=== PATIENT | male | born 1980 | race Caucasian/White ===

== ENCOUNTER 2016-10-14 11:50 | Emergency (ER) | payer OTHER ==
[2016-10-14 12:01] VITALS: TEMP 98.2; BMI 27.8
--- NOTE | 2016-10-14 12:07 | PDOC ---
History of Present Illness - General History Source: Patient Exam Limitations: No Limitations - History of Present Illness Initial Comments: 10/14/16 12:34 The patient is a 36 year old male, with a significant past medical history of, who presents to the emergency department with intermittent right sided chest pain this morning. The patient describes his pain as sharp sensation radiating to his right shoulder and right neck area. He reports having an episode of chest pain this morning ranking his pain a 10/10 in pain intensity. He also reports while shoveling having another episode of chest pain the sidewalks today at work accompanied by heart palpitations, ranking his pain again during the episode a 10/10 in pain intensity. He reports having SOB during these chest pain episode and reports having pain with with deep inspirations. He denies any recent injury or trauma. He denies fever, chills, headache and dizziness. He denies nausea, vomit, diarrhea and constipation. Allergies: NKA Past surgical history: denies Family History: diabetes (paternal) Social History: Former ([place]) smoker. Denies EtOH use and drug use. <Vitor Dillard - Last Filed: 10/14/16 12:34> - General History Source: Patient Exam Limitations: No Limitations <Ania Lehman - Last Filed: 10/15/16 17:40> - General Chief Complaint: Chest Pain Stated Complaint: CHEST PAIN Time Seen by Provider: 10/14/16 12:03 Past History <Vitor Dillard - Last Filed: 10/14/16 12:34> - Past Medical History Other medical history: denies - Immunization History Immunization Up to Date: Yes - Psycho/Social/Smoking Cessation Hx Anxiety: No Suicidal Ideation: No Smoking History: Never smoked Have you smoked in the past 12 months: No Information on smoking cessation initiated: No Hx Alcohol Use: No Drug/Substance Use Hx: No Substance Use Type: None <Ania Lehman - Last Filed: 10/15/16 17:40> - Past Medical History Allergies/Adverse Reactions: Allergies Allergy/AdvReac Type Severity Reaction Status Date / Time No Known Allergies Allergy Verified 10/14/16 11:57 Home Medications: Ambulatory Orders NK [No Known Home Medication] 10/14/16 Review of Systems - Review of Systems Able to Perform ROS?: Yes Comments:: 10/14/16 12:35 GENERAL/CONSTITUTIONAL: No: fever, chills, weakness, loss of appetite. HEAD, EYES, EARS, NOSE AND THROAT: No: change in vision, ear pain, discharge, sore throat, throat swelling. CARDIOVASCULAR: Yes: chest pain and palpitations. No: lightheadedness, syncope RESPIRATORY: No: cough, shortness of breath, wheezing, hemoptysis, stridor. GASTROINTESTINAL: No: nausea, vomiting, diarrhea, abdominal cramping, rectal bleeding, constipation. GENITOURINARY: No: dysuria, hematuria, frequency, urgency, flank pain. MUSCULOSKELETAL: No: back pain, neck pain, joint pain, muscle swelling or pain SKIN : No: lesions, pallor, rash or easy bruising. NEUROLOGIC: No: headache, vertigo, paresthesias, weakness ENDOCRINE: No: unexplained weight gain or loss HEMATOLOGIC/LYMPHATIC: No: anemia, easy bleeding, swelling nodes. <Vitor Dillard - Last Filed: 10/14/16 12:34> *Physical Exam - Vital Signs Last Vital Signs Temp Pulse Resp BP Pulse Ox 98.2 F 62 20 124/91 99 10/14/16 11:57 10/14/16 11:57 10/14/16 11:57 10/14/16 11:57 10/14/16 11:57 - Physical Exam Comments: 10/14/16 12:35 GENERAL: The patient is in no acute distress. HEAD: Normal with no signs of trauma. EYES: PERRLA, EOMI, sclera anicteric, conjunctiva clear. ENT: Ears normal, nares patent, oropharynx clear without exudates. Moist mucous membranes. NECK: Normal range of motion, supple without lymphadenopathy, JVD, or masses. LUNGS: Chest wall tendernes. Breath sounds equal, clear to auscultation bilaterally. No wheezes, and no crackles. HEART: Regular rate and rhythm, normal S1 and S2 without murmur, rub or gallop. ABDOMEN: Soft, nontender, normoactive bowel sounds. No guarding, no rebound. No masses palpable. EXTREMITIES: Normal range of motion, no edema. No clubbing or cyanosis. No erythema, or tenderness. NEUROLOGICAL: Cranial nerves II through XII grossly intact. Normal speech. No focal neurological deficits. MUSCULOSKELETAL: Back non-tender to palpation, no CVA tenderness SKIN: Warm, Dry, normal turgor, no rashes or lesions noted. <Vitro Dillard - Last Filed: 10/14/16 12:34> - Vital Signs Last Vital Signs Temp Pulse Resp BP Pulse Ox 98.2 F 62 20 124/91 99 10/14/16 11:57 10/14/16 11:57 10/14/16 11:57 10/14/16 11:57 10/14/16 11:57 <Ania Lehman - Last Filed: 10/15/16 17:40> Heart Score/ECG Review #1 ECG reviewed & interpreted by me at: 15:49 10/14/16 15:49 Twelve-lead EKG was performed and reviewed by me. There is normal sinus rhythm with a slightly bradcardiac rate of 57 bpm. (+) Artifact. The axis is normal. The intervals are normal - p: 120ms QRS:72ms, QTc:373ms. There are no ST or T wave abnormalities. <Ania Lehman - Last Filed: 10/15/16 17:40> ED Treatment Course - LABORATORY CBC & Chemistry Diagram: 10/14/16 12:05 10/14/16 12:03 - ADDITIONAL ORDERS Additional order review: 10/14/16 12:05 RBC 5.06 MCV 89.6 MCHC 33.8 RDW 13.3 MPV 8.4 Neutrophils % 60.6 Lymphocytes % 32.2 Monocytes % 6.4 Eosinophils % 0.2 Basophils % 0.6 <Vitor Dillard - Last Filed: 10/14/16 12:34> - LABORATORY CBC & Chemistry Diagram: 10/14/16 12:05 10/14/16 12:03 <Ania Lehman - Last Filed: 10/15/16 17:40> Medical Decision Making - Medical Decision Making 10/14/16 12:07 A portion of this note was documented by scribe services under my direction. I have reviewed the details of the note, within reason, and agree with the documentation with the following case summary and management plan written by me. Nursing documentation reviewed and incorporated into medical decision making 10/14/16 12:54 This is an otherwise healthy 36-year-old male who presents emergency department with a complaint of right shoulder/right chest/left chest pain. Patient states he was in his usual state of health last night, awoke this morning with right shoulder pain which she states was sharp, rated a 10/10. He went to work, notes his pain radiating through the right chest and left chest Pain worsens with movement Pt has not travelled, PERC neg, Low risk wells Equal blood pressures in both arms No direct chest wall trauma No fevers or chills suggestive on bronchitis or pneumonia Symptoms seem consistent with musculoskeletal pain Symptoms not associated with nausea, diaphoresis Will check labs Will do EKG Will do cxr Pt states he had a prior EKG with was abnormal (could not explain how) Pt has not followed up with PMD or cardiology He states he has had no exertional symptoms Laboratory Tests 10/14/16 12:03 BUN 20 H Creatinine 0.9 Creatine Kinase 83 Troponin I < 0.02 10/14/16 15:36 Pt states he feels better No complaints at this time Will follow up with PMD and cardiology Clinical impression: musculoskeletal chest pain <Ania Lehman - Last Filed: 10/15/16 17:40> *DC/Admit/Observation/Transfer - Attestations Scribe Attestion: 10/14/16 12:35 Documentation prepared by Vitor Dillard, acting as medical physicist for Ania Lehman MD. <Vitor Dillard - Last Filed: 10/14/16 12:34> - Discharge Dispostion Admit: No <Ania Lehman - Last Filed: 10/15/16 17:40> Diagnosis at time of Disposition: Chest pain Qualifiers: Chest pain type: other chest pain Qualified Code(s): R07.89 - Other chest pain - Discharge Dispostion Disposition: HOME Condition at time of disposition: Stable - Referrals Referrals: STAFF,NOT ON [Primary Care Provider] - - Patient Instructions Printed Discharge Instructions: DI for Atypical Chest Pain Additional Instructions: Randy Thank you for coming in to the ER today Please please follow up with your primary care physician within 2-3 business days Please return to the ER for any other concerns or complaints
[2016-10-14 12:25] LABS: BASOPHIL 0.6 % (0-2.0); EOSINOPHIL 0.2 % (0-4.5); MCH 30.3 pg (25.7-33.7); MCHC 33.8 g/dl (32.0-35.9); MEAN CELL VOLUME 89.6 fl (80-96); MEAN PLT VOLUME 8.4 fl (7.5-11.1); NEUTROPHILS 60.6 % (42.8-82.8); PLATELET COUNT 186 K/MM3 (134-434); RDW 13.3 % (11.9-15.9); WHITE BLOOD COUNT 7.6 K/mm3 (4.0-10.0)
[2016-10-14 12:50] LABS: ALBUMIN 4.2 g/dl (3.4-5.0); ANION GAP 10 (8-16); BILIRUBIN,TOTAL 0.5 mg/dL (0.2-1.0); CALCIUM 8.9 mg/dL (8.5-10.1); CO2 26 mmol/L (21-32); CREATININE 0.9 mg/dL (0.7-1.3); GLUCOSE,RANDOM 88 mg/dL (74-106); SGOT/AST 16 U/L (15-37); SGPT/ALT 32 U/L (12-78); TOT PROT 7.8 g/dl (6.4-8.2)
[2016-10-14 12:53] LABS: ALK PHOS 77 U/L (45-117); TROPONIN I < 0.02 ng/ml (0.00-0.05)
[2016-10-14] MEDS ORDERED: METHOCARBAMOL 500 MG TABLET PO ONE (13:41)
[2016-10-14] MEDS ORDERED: IBUPROFEN 600 MG TABLET (FP) PO ONE ×2 (13:41→14:02)
[2016-10-14] MEDS ORDERED: METHOCARBAMOL 500 MG TABLET ONE (14:02)
[2016-10-14 15:21] VITALS: PULSE 69
[2016-10-14 15:22] VITALS: BP 140/85
--- NOTE | 2016-10-14 15:46 | EKG ---
Test Reason : Blood Pressure : / mmHG Vent. Rate : 057 BPM Atrial Rate : 288 BPM P-R Int : 000 ms QRS Dur : 072 ms QT Int : 384 ms P-R-T Axes : 000 029 009 degrees QTc Int : 373 ms POOR DATA QUALITY, INTERPRETATION MAY BE ADVERSELY AFFECTED NORMAL SINUS RHYTHM EARLY REPOLARIZATION NO PREVIOUS ECGS AVAILABLE Confirmed by BRITTANY BILLINGSLEY MD ([id number]) on 10/14/2016 3:45:51 PM Referred By: Confirmed By:BRITTANY BILLINGSLEY MD
== END 2016-10-14 16:11 | disposition home or self-care (01) ==
LOC: JER 11:50
DX: R07.89 Other chest pain (principal); Z87.891 Personal history of nicotine dependence
CPT/HCPCS: 36415; 80053; 82550; 84484; 85025; 93005; 93010; 99283-25